=== PATIENT | male | born 1945 | race Caucasian/White ===

== ENCOUNTER 2023-05-22 13:30 | Emergency (ER) | payer SELFPAY ==
[2023-05-22] VITALS (33 sets, daily range): BP systolic 68–118; BP diastolic 42–84; PULSE 68–91; RESP 18–20; TEMP 36; O2SAT 93–98; BMI 25.4
--- NOTE | 2023-05-22 15:10 | ED_ITS ---
HPI - General Adult General Time Seen by Provider: 15:10 Date Seen: 05/22/23 Chief complaint: Unspecified Complaint, Adult Stated complaint: Low BP Time Seen by Provider: 05/22/23 15:03 Source: patient and RN notes reviewed Mode of arrival: ambulatory Limitations: no limitations History of Present Illness HPI narrative: This 78-year-old male was in clinic today and found to be hypotensive. He went in admitting that he has not felt well since November. He was in for his blood pressure/wellness exam in November. Few days after that he states he just suddenly felt weak and fatigued. Started sleeping about 18-20 hours a day. Since temper, this is diminishing. When this 1st hit, he states he could not even lift a gal of milk, had use both arms to do it. He then mo the lawn all summer long, did not do really anything all summer. He had an episode of syncope on May 19 when he was out for his birthday eating with his family. He has been more lightheaded with position changes. His notes that he is not eating much, he is had a documented 17 lb weight loss since the summer. She feels he is not eating and not drinking. He states he is trying to eat more just recently. He had no pain at any time through this, no headaches, no GI symptoms, no chest symptoms, no coughing. He wondered if he had lung COVID but never did get tested or confirmed to have COVID at any time at the beginning of this. He states the doctor stopped his antihypertensive today. That certainly seems appropriate with the blood pressures we are seen. EKG in clinic showed sinus rhythm no evidence of ischemia. QT corrected was 480 milliseconds. He had a hemoglobin of 12.7 in clinic but the rest of the labs are send outs, will be doing those here today so we can see them. He will feel lightheaded and dizzy when standing. He notes when this 1st started in November, he was so severely dizzy that he could not even stand up. He had difficulty moving arms and legs. He quit smoking over 15 years ago. He does drink about 3-4 alcoholic beverages nightly, vodka usually. He had been on Zestoretic which she states the doctor. Today. They also did a PSA screening for him. Blood pressure clinic was 74/45. His chart shows a history of hypertension and pulmonary nodules for diagnoses. Patient did take his blood pressure medicine today. Related Data Home Medications Medication Instructions Recorded Confirmed lisinopril 05/22/23 Allergies Allergy/AdvReac Type Severity Reaction Status Date / Time novacaine AdvReac Severe Uncoded 05/22/23 14:14 Review of Systems Status of ROS: Reports: 6 or more systems reviewed and unremarkable except as noted in History and below Exam Const: Vital Signs, click to edit/add: Vital Signs - 24 hr 05/22/23 14:08 05/22/23 15:11 05/22/23 16:02 Temperature 96.8 F L Pulse Rate Pulse Rate [Pulse Oximeter] 91 83 Respiratory Rate 18 20 Blood Pressure 95/61 Blood Pressure [Le ft Upper Arm] 82/50 L 102/68 Blood Pressure [Ri ght Upper Arm] 68/42 L Pulse Oximetry 97 98 Oxygen Delivery Me thod Room Air Room Air 05/22/23 16:03 05/22/23 16:15 05/22/23 16:16 Temperature Pulse Rate 75 71 77 Pulse Rate [Pulse Oximeter] Respiratory Rate Blood Pressure 91/65 Blood Pressure [Le ft Upper Arm] Blood Pressure [Ri ght Upper Arm] Pulse Oximetry 97 98 98 Oxygen Delivery Me thod 05/22/23 16:17 05/22/23 17:31 05/22/23 17:33 Temperature Pulse Rate 74 72 70 Pulse Rate [Pulse Oximeter] Respiratory Rate Blood Pressure 103/65 Blood Pressure [Le ft Upper Arm] Blood Pressure [Ri ght Upper Arm] Pulse Oximetry 97 93 96 Oxygen Delivery Me thod 05/22/23 17:34 05/22/23 17:45 05/22/23 17:46 Temperature Pulse Rate 68 80 84 Pulse Rate [Pulse Oximeter] Respiratory Rate Blood Pressure 80/61 L Blood Pressure [Le ft Upper Arm] Blood Pressure [Ri ght Upper Arm] Pulse Oximetry 97 97 96 Oxygen Delivery Me thod 05/22/23 17:47 05/22/23 18:00 05/22/23 18:02 Temperature Pulse Rate 87 85 82 Pulse Rate [Pulse Oximeter] Respiratory Rate Blood Pressure 93/83 Blood Pressure [Le ft Upper Arm] Blood Pressure [Ri ght Upper Arm] Pulse Oximetry 97 97 97 Oxygen Delivery Me thod 05/22/23 18:15 05/22/23 18:16 05/22/23 18:20 Temperature Pulse Rate 82 87 Pulse Rate [Pulse Oximeter] Respiratory Rate Blood Pressure 95/65 88/67 L Blood Pressure [Le ft Upper Arm] Blood Pressure [Ri ght Upper Arm] Pulse Oximetry 96 97 Oxygen Delivery Me thod 05/22/23 18:30 05/22/23 18:32 05/22/23 18:45 Temperature Pulse Rate 68 75 73 Pulse Rate [Pulse Oximeter] Respiratory Rate Blood Pressure 98/70 Blood Pressure [Le ft Upper Arm] Blood Pressure [Ri ght Upper Arm] Pulse Oximetry 97 97 97 Oxygen Delivery Me thod 05/22/23 18:46 05/22/23 18:47 05/22/23 19:00 Temperature Pulse Rate 73 80 70 Pulse Rate [Pulse Oximeter] Respiratory Rate Blood Pressure 116/84 Blood Pressure [Le ft Upper Arm] Blood Pressure [Ri ght Upper Arm] Pulse Oximetry 97 98 97 Oxygen Delivery Me thod 05/22/23 19:01 05/22/23 19:15 05/22/23 19:17 Temperature Pulse Rate 76 75 75 Pulse Rate [Pulse Oximeter] Respiratory Rate Blood Pressure 118/75 101/66 Blood Pressure [Le ft Upper Arm] Blood Pressure [Ri ght Upper Arm] Pulse Oximetry 96 98 97 Oxygen Delivery Me thod 05/22/23 19:30 05/22/23 19:32 05/22/23 19:33 Temperature Pulse Rate 69 71 68 Pulse Rate [Pulse Oximeter] Respiratory Rate Blood Pressure 96/65 Blood Pressure [Le ft Upper Arm] Blood Pressure [Ri ght Upper Arm] Pulse Oximetry 98 96 95 Oxygen Delivery Me thod 05/22/23 19:45 05/22/23 19:47 05/22/23 20:00 Temperature Pulse Rate 71 78 68 Pulse Rate [Pulse Oximeter] Respiratory Rate Blood Pressure 101/77 Blood Pressure [Le ft Upper Arm] Blood Pressure [Ri ght Upper Arm] Pulse Oximetry 97 98 97 Oxygen Delivery Me thod Patrice is sitting in the chair in exam room for, alert, interactive, no apparent distress. Pupils are equal round reactive, sclera clear, face atraumatic, oropharynx no minute mucosa, speech normal. Neck is supple, no palpable masses, no thyromegaly masses or nodules. Lungs are clear, good air entry, no wheezing or crackles, no tachypnea, no accessory muscle use. CV regular rate and rhythm, no murmur, normal S1 and S2, no S3 or S4. Blood pressure before he came in was 102/68 in his left arm. I did recheck blood pressures when I was in there, right arm 77/62 and left 80/57. Abdomen is soft, no rebound or guarding, no organomegaly. Patient is ambulatory into the ED of his own accord. He did drive himself here. Documenting provider has reviewed patient's vital signs: yes Course Course ED Course: This patient is hypotensive and this is likely causing his lightheadedness and dizziness. We did review the 17 lb weight loss over the summer probably has necessitated the need to drop his blood pressure medicine. I agree with his primary care provider in stopping it at this point and observing. We will give him some IV fluid here, see how he response to that. I will have to get some of these labs that are pending, do need to see them today. Will get a two view chest x-ray on him. Will see if there is anything off with a comprehensive metabolic panel. He may need further workup for the weight loss in the symptoms he has been experiencing, emergently at this time will work to address the blood pressure. We will see what might need further evaluation here. Reevaluation(s) Time of Reevaluation #1: 17:19 Reevaluation #1: Have reviewed my concerns with patient, my a opinion that he should go into the hospital for further treatment and workup. The picture that he is presenting with could be clouded by the lisinopril and hydrochlorothiazide. He is hypotensive but also hypokalemic, reviewed with him that this certainly could tie into adrenal issues come difficult to figure out at this point. We are replacing potassium, he is also getting some magnesium replaced, relatively low at 1.7. Reviewed with him that he really should come into the hospital, he states he does not want to, wonders if he could come back tomorrow if he feels he needs to. I reviewed with him that he is always welcome to return to the ER if he should choose to leave but we cannot guarantee him any hospitalization anywhere, have reviewed with him that he got back in a timely fashion today, most days are over 3 hour weights to come back now. [facility] [place]. I would not guarantee that I will have a hospital bed tomorrow. I also reviewed with him that it would take him some time to probably get back into the clinic, I doubt that they would be willing to work this up outpatient. With his electrolytes and blood pressure being the way the ER, I reviewed with him that he really is not stable for this to be worked up outpatient. Did review that it is possible that should he choose to leave, this could be life threatening decision for him. I fully endorse him having further workup in the hospital. Time of Reevaluation #2: 18:38 Reevaluation #2: Patient is seen again with his present again. He is adamant that he is not willing to stay. He does seem to have understanding of what I am telling him. Once he has completed his potassium and magnesium, IV fluids, will plan to discharge to home. He does understand that complications of his decision could even include life-threatening problems. He understands he is going to need to f ollow up outpatient. Time of Reevaluation #3: 21:38 Reevaluation #3: Patient has completed his infusions of potassium and magnesium. He is adamant he wants to go home. He will follow-up in clinic for recheck of his labs / potassium this week. He will need his blood pressure followed. I do agree with him staying off the blood pressure medicine for the time being at least. He understands his workup is not complete and will need to follow up in clinic Since he declines admission. Blood pressure has certainly trended upwards while here. Consultations Consultation #1: Just spoke with hospitalist Dr. Levy who agrees to take this patient if he will consider coming into the hospital. Time: 17:13 Vital Signs Vital signs: Initial Vital Signs Temperature 96.8 F L 05/22/23 14:08 Temperature Source Temporal Artery Scan 05/22/23 14:08 Pulse Rate 91 05/22/23 14:08 Respiratory Rate 18 05/22/23 14:08 Blood Pressure 68/42 L 05/22/23 14:08 Blood Pressure Mean 50 L 05/22/23 14:08 Blood Pressure Position Sitting 05/22/23 14:08 Pulse Oximetry 97 05/22/23 14:08 Oxygen Delivery Method Room Air 05/22/23 14:08 Vital Signs Temperature 96.8 F L 05/22/23 14:08 Pulse Rate 91 05/22/23 14:08 Respiratory Rate 18 05/22/23 14:08 Blood Pressure 68/42 L 05/22/23 14:08 Pulse Oximetry 97 05/22/23 14:08 Oxygen Delivery Method Room Air 05/22/23 14:08 Temperature 96.8 F L 05/22/23 14:08 Pulse Rate 68 05/22/23 20:00 Respiratory Rate 20 05/22/23 15:11 Blood Pressure 101/77 05/22/23 19:47 Pulse Oximetry 97 05/22/23 20:00 Oxygen Delivery Method Room Air 05/22/23 15:11 Medical Decision Making Lab Data Lab results reviewed: Yes I reviewed the patient's lab results Labs: Lab Results 05/22/23 Range/Units 15:36 WBC 11.99 H (4.50-11.00) K/uL RBC 3.37 L (4.30-5.90) m/uL Hgb 12.7 L (13.5-17.5) gm/dL Hct 37.0 (37.0-53.0) % MCV 110 H (80-100) fL MCH 38 H (26-34) pg MCHC 34 (32-36) gm/dL RDW Coeff of Domitila 14.0 (11.5-15.5) % Plt Count 384 (140-440) K/uL Neut % (Auto) 75.8 H (42.0-72.0) % Lymph % (Auto) 7.8 L (20-44) % [place] % (Auto) 14.1 H (0.0-11.0) % Eos % (Auto) 0.2 (0.0-7.0) % Baso % (Auto) 0.3 (0.0-3.0) % Neut # (Auto) 9.10 H (1.7-7.0) K/uL Lymph # (Auto) 0.90 (0.90-2.90) K/uL [place] # (Auto) 1.70 H (0.00-0.90) K/UL Eos # (Auto) 0.00 (0.00-0.50) K/uL Baso # (Auto) 0.00 (0.00-0.30) K/uL Abs Immat Gran (auto) 0.20 (0.00-0.30) K/uL Imm/Tot Granulo (auto) 1.8 % ESR 38 H (2-15) mm/hr Sodium 129 L (135-149) mmol/L Potassium 2.4 L* (3.6-5.1) mmol/L Chloride 84 L (96-114) mmol/L Carbon Dioxide 31 (20-32) mmol/L Anion Gap 14 (7-15) mEq/L BUN 14 (7-30) mg/dL Creatinine 1.2 (0.5-1.5) mg/dL Estimated Creat Clear 54.07 Estimated GFR 63 ml/min Glucose 129 H (60-115) mg/dL Calcium 9.5 (8.4-10.6) mg/dL Magnesium 1.7 (1.5-2.6) mg/dL Total Bilirubin 1.7 H (0.1-1.5) mg/dL AST 87 H (12-35) U/L ALT 37 (4-50) U/L Alkaline Phosphatase 109 (40-150) U/L Troponin I < 0.01 L (0.01-0.04) ng/mL C-Reactive Protein 2.6 H (0.5-1.0) mg/dL Total Protein 7.2 (6.0-8.3) g/dL Albumin 4.0 (3.3-5.0) g/dL TSH 2.590 (0.270-4.200) uIU/mL Imaging Data Chest x-ray: Attestation: I have reviewed the pertinent imaging results. My impression: No acute pathology on my preliminary review. Radiologist's impression: Patient: PATRICE FENG Facility:?[facility] Patient ID:?[id number] Site Patient ID:?[id number]. Site :?[id number] Study:?XRay Chest 2 VIEW-05/22/2023 4:44:03 PM Ordering Physician:Bere Salmeron Final Report: INDICATION: Weakness, weight loss and history of smoking. TECHNIQUE: Chest 2 views. COMPARISON: None. FINDINGS: No focal consolidation, pleural effusion, or pneumothorax. Normal heart size and pulmonary vascularity. Degenerative changes of the spine. Multiple old bilateral rib fractures. IMPRESSION: No acute cardiopulmonary findings. Dictated by Zulema Sierra MD @ 05/22/2023 5:37:59 PM (Electronic Signature) Critical Care Time Critical Care Time Critical Care Time: No Discharge Plan Discharge Clinical Impression: Hypotension, Hypokalemia Patient Disposition: Home, Self-Care Condition: Stable Instructions: Potassium Content of Foods List (ED), Hypokalemia (ED), Hypotension (ED) Additional Instructions: do not take yourBlood pressure medicine. Will need to follow up in clinic this week for recheck and have your potassium rechecked. If you continue to have ongoing issues with potassium and blood pressure despite stopping the blood pressure medicine, further testing will be indicated. You need to continue to work with your primary care provider for your current symptoms that you went to the clinic for today. You can return to the ED at any time you have concerns or further issues. Activity Level: Activity as Tolerated Prescriptions: No Action lisinopril Follow Up/Referrals: Provider,Not a Local [Primary Care Provider] - Stand Alone Forms: [employer] Info Instructions
--- NOTE | 2023-05-22 15:33 | CRLHL7_ITS ---
For Patients: As a result of the Century Cures Act, medical imaging exams and procedure reports are released immediately into your electronic medical record. You may view this report before your referring provider. If you have questions, please contact your health care provider. INDICATION: Dizziness. TECHNIQUE: Noncontrast CT of the head with multiplanar reformat in bone and soft tissue algorithms. COMPARISON: None available. FINDINGS: No acute intracranial hemorrhage. Scattered confluent periventricular white matter hypoattenuation, nonspecific, but typical of chronic small vessel ischemic changes. The aly-white matter interface is preserved. Mild global parenchymal volume loss with ex-vacuo prominence of the supratentorial ventricles. No suspicious calvarial lesion. Evidence of prior cataract surgery. Complete hyperdense opacification of the right maxillary sinus with hyperostosis and volume loss. IMPRESSION: 1. No acute intracranial abnormality. 2. Mild global parenchymal volume loss and chronic small vessel ischemic changes. 3. Hyperdense opacification of the right maxillary sinus, suggestive of inspissated secretions versus fungal colonization, with hyperostosis and volume loss as sequela of chronic sinusitis. Please note that all CT scans at this facility use dose modulation, iterative reconstruction, and/or weight-based dosing when appropriate to reduce radiation dose to as low as reasonably achievable. Dictated by Valdez Molina MD @ 05/22/2023 5:15:42 PM (Electronically Signed)
--- NOTE | 2023-05-22 15:34 | CRLHL7_ITS ---
For Patients: As a result of the Cures Act, medical imaging exams and procedure reports are released immediately into your electronic medical record. You may view this report before your referring provider. If you have questions, please contact your health care provider. INDICATION: Weakness, weight loss and history of smoking. TECHNIQUE: Chest 2 views. COMPARISON: None. FINDINGS: No focal consolidation, pleural effusion, or pneumothorax. Normal heart size and pulmonary vascularity. Degenerative changes of the spine. Multiple old bilateral rib fractures. IMPRESSION: No acute cardiopulmonary findings. Dictated by Zulema Sierra MD @ 05/22/2023 5:37:59 PM (Electronically Signed)
[2023-05-22 15:45] LABS: Basophils Percent Auto 0.3 % (0.0-3.0); Eosinophils Percent Auto 0.2 % (0.0-7.0); Hemoglobin* 12.7 gm/dL (13.5-17.5); Immature Granulocytes Pct Auto 1.8 %; Lymphocytes Percent Auto 7.8 % (20-44); Mean Corpuscular HGB Conc 34 gm/dL (32-36); Mean Corpuscular Hemoglobin 38 pg (26-34); Mean Corpuscular Volume 110 fL (80-100); Monocytes Percent Auto 14.1 % (0.0-11.0); Neutrophils Percent Auto 75.8 % (42.0-72.0); Platelet Count* 384 K/uL (140-440); Red Blood Count 3.37 m/uL (4.30-5.90); White Blood Count* 11.99 K/uL (4.50-11.00)
[2023-05-22 15:56] LABS: Slide Review Reflex No
[2023-05-22 16:10] LABS: Chloride* 84 mmol/L (96-114)
[2023-05-22 16:11] LABS: Sodium* 129 mmol/L (135-149)
[2023-05-22 16:13] LABS: Creatinine* 1.2 mg/dL (0.5-1.5); Est. Creatinine Clearance* 54.07; Estimated Glomerular Filt Rate 63 ml/min
[2023-05-22 16:14] LABS: Alanine Aminotransferase* 37 U/L (4-50); Alkaline Phosphatase* 109 U/L (40-150); Anion Gap 14 mEq/L (7-15); Aspartate Amino Transferase* 87 U/L (12-35); Bilirubin Total* 1.7 mg/dL (0.1-1.5); Blood Urea Nitrogen* 14 mg/dL (7-30); Calcium* 9.5 mg/dL (8.4-10.6); Carbon Dioxide* 31 mmol/L (20-32); Glucose* 129 mg/dL (60-115); Magnesium* 1.7 mg/dL (1.5-2.6); Total Protein* 7.2 g/dL (6.0-8.3)
[2023-05-22 16:16] LABS: Potassium* 2.4 mmol/L (3.6-5.1)
[2023-05-22 16:17] LABS: C Reactive Protein* 2.6 mg/dL (0.5-1.0)
[2023-05-22 16:38] LABS: Troponin I* < 0.01 ng/mL (0.01-0.04)
[2023-05-22] MEDS: POTASSIUM BICARB 25 MEQ EFFERVESCENT TAB PO (16:50)
[2023-05-22] MEDS: POTASSIUM CHLORIDE 10 MEQ/100 ML PIGGYBACK 100 MEQ IVPB ×4 (16:50→20:43)
[2023-05-22] MEDS: 0.9 % SODIUM CHLORIDE 1000 ml 1,000 ML 500 ML IV (16:51)
[2023-05-22 17:23] LABS: Erythrocyte SedimentationRate* 38 mm/hr (2-15)
[2023-05-22] MEDS: MAGNESIUM IV 2 GM/50 ML PIGGYBACK IVPB (18:47)
== END 2023-05-22 21:53 | disposition home or self-care (01) ==
PROVIDERS: Emergency Provider Family Medicine
DX: I95.9 Hypotension, unspecified (principal); E87.6 Hypokalemia
CPT/HCPCS: 36415; 70450; 71046; 80053; 83735; 84443; 84484; 85025; 85651; 86140; 94761; 96365; 96366; 96368; 99284; 99285; A9270; J3475; J3480; J7030